=== PATIENT | male | born 1960 | race Hispanic/Latino ===

== ENCOUNTER 2016-11-22 17:40 | Emergency (ER) | payer BC ==
[2016-11-22 17:52] VITALS: TEMP 98.4
--- NOTE | 2016-11-22 18:12 | ED PDOC ---
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 Patient states that he has no numbness, no decrease in range of motion, no foreign body, and reports no other injury. PMD [place] Past Medical History - Provider Review Nursing Documentation Reviewed: Yes - Infectious Disease Hx of Infectious Diseases: None - Tetanus Immunization Tetanus Immunization: Up to Date - Psychiatric Hx Substance Use: No Family/Social History - Physician Review Nursing Documentation Reviewed: Yes Family/Social History: No Known Family HX Smoking Status: Never Smoked Hx Alcohol Use: No Hx Substance Use: No Allergies/Home Meds Allergies/Adverse Reactions: Allergies No Known Allergies Allergy (Verified 11/22/16 17:44) Review of Systems - Review of Systems Constitutional: Normal. absent: Fatigue, Weight Change, Fevers Musculoskeletal: Normal. absent: Arthralgias, Back Pain, Neck Pain Skin: Normal, Laceration. absent: Rash, Pruritis, Skin Lesions Physical Exam - Physical Exam Narrative Physical Exam (Text): 11/22/16 20:03 GENERAL APPEARANCE: Patient is awake, alert, oriented x 3, in moderate painful distress. SKIN: Warm, dry; (-) cyanosis. L forearm: (+) 12 cm deep U shaped laceration to the volar mid L forearm with tenderness, (-) swelling, (-) ecchymosis, (-) FB, (-) deformity. Radial pulses 2 + (-) distal neurovascular deficit. Elbow, wrist, hand and digits: (-) tenderness. 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 Given morphine 6 mg IM and zofran ODT PO. Tdap IM administered. The wound is L forearm. The wound was copiously irrigated with normal saline. The wound was explored for foreign bodies and none were found. Laceration repair was performed by Dr. Kortney Munson, neurosurgical nurse. The wound was anesthetised using lidocaine w/ epi. The edges were reapproximated using 10 3-0 vicryl and 20 3-0 monocryl. Bleeding was well controlled and the patient tolerated the procedure well. Post procedure, radial pulses 2+, distal sensation intact. Clean dressing was applied. XR L forearm: no fracture, no dislocation, no FB, as read by PA Based on history, exam and diagnostic results plan will be for outpatient f/u. Patient states he fully agrees with and understands discharge instructions. States that he agrees with the plan and disposition. Verbalized and repeated discharge instructions and plan. I have given the patient opportunity to ask any additional questions. Follow up with primary care physician in 2 days without fail. Advised to take medication as prescribed. Return to the emergency room at any time for any new or worsening symptoms. - RAD Interpretation Radiology Orders: 11/22/16 19:47 FOREARM LEFT [RAD] Stat - Medication Orders Current Medication Orders: Discontinued Medications Cephalexin Monohydrate (Keflex) 500 mg PO STAT STA PRN Reason: Protocol Stop: 11/22/16 19:48 Lidocaine HCl (Lidocaine 1% (20ml)) Confirm Administered Dose 20 ml .ROUTE .STK- MED ONE Stop: 11/22/16 18:25 Last Admin: 11/22/16 18:35 Dose: Lidocaine/Epinephrine (Lidocaine 1%/Epinephrine 1:044121 30 Ml) 30 ml IJ ONCE ONE Stop: 11/22/16 18:21 Last Admin: 11/22/16 18:33 Dose: 30 ml Morphine Sulfate (Morphine) 6 mg IM STAT STA Stop: 11/22/16 18:12 Last Admin: 11/22/16 18:20 Dose: 6 mg Ondansetron HCl (Zofran Odt) 4 mg PO STAT STA Stop: 11/22/16 18:12 Last Admin: 11/22/16 18:20 Dose: 4 mg - PA / PUMP MACHINE OPERATOR / Resident Statement MD/DO has reviewed & agrees with the documentation as recorded. Disposition/Present on Arrival - Present on Arrival Any Indicators Present on Arrival: No History of DVT/PE: No History of Uncontrolled Diabetes: No Urinary Catheter: No History of Decub. Ulcer: No History Surgical Site Infection Following: None - Disposition Have Diagnosis and Disposition been Completed?: Yes Diagnosis: Laceration of forearm Disposition Time: 20:30 Patient Plan: Discharge Patient Problems: Current Active Problems Problem Status Onset Laceration of forearm Acute Condition: STABLE Discharge Instructions (ExitCare): Laceration (ED), Care For Your Stitches (ED) , Acute Wound Care (ED) Print Language: KAZAKH Prescriptions: Cephalexin [Keflex] 500 mg PO Q6 #28 capsule Referrals: Mathew Brown MD [Primary Care Provider] - Follow up with primary
[2016-11-22] MEDS ORDERED: Lidocaine 1%/Epinephrine 1:100000 30 ml vial IJ ONE (18:20)
[2016-11-22] MEDS ORDERED: Lidocaine 1% Inj (20ml) ONE (18:24)
[2016-11-22 22:00] VITALS: BP 149/95; PULSE 98; RESP 18; O2SAT 96
--- NOTE | 2016-11-23 09:11 | RAD ---
PROCEDURE: Radiographs of the Left Forearm HISTORY: Trauma COMPARISON: None available. TECHNIQUE: Frontal and lateral views obtained. FINDINGS: BONES: No fracture or destructive lesion. Bone alignment and mineralization are normal. JOINT SPACES: Unremarkable. OTHER FINDINGS: None. IMPRESSION: No acute fracture or dislocation.
== END 2016-11-22 21:00 | disposition home or self-care (01) ==
LOC: ED 17:40
DX: S51.812A Laceration without foreign body of left forearm, initial encounter (principal); W45.8XXA Other foreign body or object entering through skin, initial encounter; Y92.89 Other specified places as the place of occurrence of the external cause
CPT/HCPCS: 12004; 73090; 96372; 99283; J2270